=== PATIENT | male | born 1995 | race Caucasian/White ===

== ENCOUNTER 2017-02-09 15:47 | Emergency (ER) | payer BC ==
[2017-02-09 16:06] VITALS: PULSE 97; O2SAT 97
[2017-02-09] MEDS ORDERED: Sodium Chloride 0.9% 1000 ML 1,000 ML IV STA (16:08)
[2017-02-09] MEDS ORDERED: Pepcid 20 MG VIAL IV ONE ×2 (16:08→16:19)
[2017-02-09] MEDS ORDERED: GI COCKTAIL 45 ML (Maalox/Lidocaine) PO ONE (16:08)
--- NOTE | 2017-02-09 16:08 | ERPHSYRPT ---
- History of Present Illness Time Seen by Provider: 02/09/17 16:03 Historian: patient Exam Limitations: no limitations Physician History: The patient is a 21-year-old male who complains of a sudden onset of right sided chest pain and tightness about 30 minutes ago while he was smoking a cigarette. He has never had any pain like this before. He normally does not drink alcohol but last [place] he went [place] a resort and had 9 alcoholic drinks. He hasn't had much water to drink today. He became very worried about the chest pain. It was severe at first but has now moderated quite a bit. He has no past medical history. Timing/Duration: today, hour(s) (1/2) Activities at Onset: none Quality: sharpness, tightness Location: substernal (right side) Chest Pain Radiation: back Severity of Pain-Max: severe Severity of Pain-Current: mild Modifying Factors: Improves With: nothing Associated Symptoms: hurts to breathe, No nausea, No vomiting, No palpitations Prior Chest Pain/Cardiac Workup: no prior chest pain Nitro Today/Relief: no nitro taken today Aspirin Treatment Today: no aspirin today Allergies/Adverse Reactions: No Known Drug Allergies Allergy (Unverified 02/09/17 16:06) Home Medications: No Reportable Medications [No Reported Medications] 02/09/17 [History] - Review of Systems Constitutional: No Fever, No Chills Eyes: No Symptoms Ears, Nose, & Throat: No Symptoms Respiratory: No Cough, No Dyspnea Cardiac: Chest Pain Abdominal/Gastrointestinal: No Abdominal Pain, No Nausea, No Vomiting, No Diarrhea Genitourinary Symptoms: No Dysuria Musculoskeletal: No Back Pain, No Neck Pain Skin: No Rash Neurological: No Dizziness, No Focal Weakness, No Sensory Changes Psychological: No Symptoms Endocrine: No Symptoms Hematologic/Lymphatic: No Symptoms Immunological/Allergic: No Symptoms All Other Systems: Reviewed and Negative - Nursing Vital Signs Nursing Vital Signs: Initial Vital Signs Pulse Rate 98 H 02/09/17 15:59 Respiratory Rate 20 02/09/17 15:59 Blood Pressure 149/82 02/09/17 15:59 O2 Sat by Pulse Oximetry 97 02/09/17 15:59 Pain Scale Pain Intensity 5 - Physical Exam General Appearance: anxiety Eye Exam: PERRL/EOMI, eyes nml inspection Ears, Nose, Throat Exam: normal ENT inspection, moist mucous membranes Neck Exam: normal inspection, non-tender, supple, full range of motion Respiratory Exam: normal breath sounds, chest tenderness (palpation to right side of sternum reproduces pain), lungs clear, No respiratory distress Cardiovascular Exam: regular rate/rhythm, normal heart sounds Gastrointestinal/Abdomen Exam: soft, No tenderness, No mass Rectal Exam: not done Back Exam: normal inspection, No CVA tenderness, No vertebral tenderness Extremity Exam: normal inspection, normal range of motion Neurologic Exam: alert, oriented x 3, cooperative, normal mood/affect, sensation nml, No motor deficits Skin Exam: normal color, warm, dry SpO2 Interpretation: normal - Course EKG Interpreted by Me: RATE, Sinus Rhythm, NORMAL INTERVALS, NORMAL QRS, NORMAL ST-T - Radiology Exams Chest X-ray Interpretation: Interpreted by me, Negative Ordered Tests: Active Orders 24 hr Category Date Time Status EKG-ER Only STAT Care 02/09/17 16:08 Active IV Insertion STAT Care 02/09/17 16:08 Active CHEST 2 VIEWS (PA AND LAT) Stat Exams 02/09/17 16:09 Taken CBC W DIFF Stat Lab 02/09/17 16:00 Completed CMP Stat Lab 02/09/17 16:00 Completed LIPASE Stat Lab 02/09/17 16:00 Completed Lactic Acid Stat Lab 02/09/17 16:08 Completed TROPONIN Q3H Lab 02/09/17 16:00 Completed TROPONIN Q3H Lab 02/09/17 19:15 Ordered TROPONIN Q3H Lab 02/09/17 22:15 Ordered TROPONIN Q3H Lab 02/10/17 01:15 Ordered TROPONIN Q3H Lab 02/10/17 04:15 Ordered UA W/RFX UR CULTURE Stat Lab 02/09/17 17:01 Completed Urine Triage Profile Stat Lab 02/09/17 17:01 Completed Medication Summary Discontinued Medications Generic Name Dose Route Start Last Admin Trade Name Freq PRN Reason Stop Dose Admin Al Hydrox/Mg Hydrox/Simethicone Confirm 02/09/17 16:20 Maalox Es 30 Ml Unit Dose Administered 02/09/17 16:21 Dose 30 ml .ROUTE .STK-MED ONE Famotidine 20 mg 02/09/17 16:08 02/09/17 16:22 Pepcid 20 Mg Vial IV 02/09/17 16:09 20 mg STAT ONE Administration Famotidine Confirm 02/09/17 16:19 Pepcid 20 Mg Vial Administered 02/09/17 16:20 Dose 20 mg IV .STK-MED ONE Sodium Chloride 1,000 mls @ 999 mls/hr 02/09/17 16:08 02/09/17 16:22 Sodium Chloride 0.9% 1000 Ml IV 02/09/17 17:08 999 mls/hr .Q1H1M STA Administration Sodium Chloride Confirm 02/09/17 16:20 Sodium Chloride 0.9% 1000 Ml Administered 02/09/17 16:21 Dose 1,000 mls @ ud .ROUTE .STK-MED ONE Lidocaine HCl Confirm 02/09/17 16:20 Xylocaine Hcl Viscous * Administered 02/09/17 16:21 Dose 15 ml .ROUTE .STK-MED ONE Magnesium Hydroxide 45 ml 02/09/17 16:08 02/09/17 16:22 Gi Cocktail 45 Ml (Maalox/Lidocaine) PO 02/09/17 16:09 45 ml STAT ONE Administration Potassium Chloride 20 meq 02/09/17 17:51 Klor Con 10 Meq PO 02/09/17 17:52 STAT ONE Lab/Rad Data: Laboratory Result Diagrams 02/09/17 16:00 02/09/17 16:00 Laboratory Results 02/09/17 02/09/17 02/09/17 Range/Units 17:01 17:01 16:08 WBC (4.0-10.5) K/mm3 RBC (4.1-5.6) M/mm3 Hgb (12.5-18.0) gm/dl Hct (42-50) % MCV (78-100) fl MCH (26-32) pg MCHC (32-36) g/dl RDW (11.5-14.0) % Plt Count (150-450) K/mm3 MPV (6-9.5) fl Gran % (36.0-66.0) % Lymphocytes % (24.0-44.0) % Monocytes % (0.0-12.0) % Eosinophils % (0.00-5.0) % Basophils % (0.0-0.4) % Basophils # (0-0.4) Sodium (136-145) mEq/L Potassium (3.5-5.1) mEq/L Chloride (98-107) mEq/L Carbon Dioxide (21-32) mEq/L Anion Gap (5-15) MEQ/L BUN (9-20) mg/dL Creatinine (0.55-1.30) mg/dl Estimated GFR ML/MIN Glucose (70-110) MG/DL Lactic Acid 1.2 (0.4-2.0) Calcium (8.5-10.1) mg/dL Total Bilirubin (0.2-1.0) mg/dL AST (15-37) U/L ALT (12-78) U/L Alkaline Phosphatase (46-116) U/L Troponin I (0.000-0.056) ng/ml Serum Total Protein (6.4-8.2) gm/dL Albumin (3.4-5.0) g/dL Lipase (73-393) U/L Ur Collection Type VOID Urine Color YELLOW (YELLOW) Urine Appearance CLEAR (CLEAR) Urine pH 6.0 (5-6) Ur Specific [place] 1.020 (1.005-1.025) Urine Protein NEGATIVE (Negative) Urine Ketones NEGATIVE (NEGATIVE) Urine Blood NEGATIVE (0-5) Sj/ul Urine Nitrite NEGATIVE (NEGATIVE) Urine Bilirubin SMALL (NEGATIVE) Urine Urobilinogen 1 (0-1) mg/dL Ur Leukocyte Esterase NEGATIVE (NEGATIVE) Urine Culture Reflexed NO (NO) Urine Glucose NEGATIVE (NEGATIVE) mg/dL Urine Opiates Level NEG. (NEGATIVE) Ur Methadone NEG. (NEGATIVE) Urine Barbiturates NEG. (NEGATIVE) Ur Phencyclidine (PCP) NEG. (NEGATIVE) Urine Amphetamine NEG. (NEGATIVE) U Benzodiazepine Level NEG. (NEGATIVE) Urine Cocaine NEG. (NEGATIVE) Urine Marijuana (THC) POS. (NEGATIVE) Specimen Received 02/09/17 02/09/17 02/09/17 02/09/17 Range/Units 16:00 16:00 16:00 WBC 11.7 H (4.0-10.5) K/mm3 RBC 5.68 H (4.1-5.6) M/mm3 Hgb 16.6 (12.5-18.0) gm/dl Hct 49.6 (42-50) % MCV 87.3 (78-100) fl MCH 29.2 (26-32) pg MCHC 33.5 (32-36) g/dl RDW 14.0 (11.5-14.0) % Plt Count 228 (150-450) K/mm3 MPV 10.7 H (6-9.5) fl Gran % 59.2 (36.0-66.0) % Lymphocytes % 30.5 (24.0-44.0) % Monocytes % 7.5 (0.0-12.0) % Eosinophils % 2.7 (0.00-5.0) % Basophils % 0.1 (0.0-0.4) % Basophils # 0.01 (0-0.4) Sodium 139 (136-145) mEq/L Potassium 3.3 L (3.5-5.1) mEq/L Chloride 103 (98-107) mEq/L Carbon Dioxide 26.0 (21-32) mEq/L Anion Gap 13.1 (5-15) MEQ/L BUN 16 (9-20) mg/dL Creatinine 1.27 (0.55-1.30) mg/dl Estimated GFR > 60 ML/MIN Glucose 105 (70-110) MG/DL Lactic Acid (0.4-2.0) Calcium 9.0 (8.5-10.1) mg/dL Total Bilirubin 0.40 (0.2-1.0) mg/dL AST 24 (15-37) U/L ALT 44 (12-78) U/L Alkaline Phosphatase 72 (46-116) U/L Troponin I < 0.017 (0.000-0.056) ng/ml Serum Total Protein 7.8 (6.4-8.2) gm/dL Albumin 4.2 (3.4-5.0) g/dL Lipase 136 (73-393) U/L Ur Collection Type Urine Color (YELLOW) Urine Appearance (CLEAR) Urine pH (5-6) Ur Specific [place] (1.005-1.025) Urine Protein (Negative) Urine Ketones (NEGATIVE) Urine Blood (0-5) Sj/ul Urine Nitrite (NEGATIVE) Urine Bilirubin (NEGATIVE) Urine Urobilinogen (0-1) mg/dL Ur Leukocyte Esterase (NEGATIVE) Urine Culture Reflexed (NO) Urine Glucose (NEGATIVE) mg/dL Urine Opiates Level (NEGATIVE) Ur Methadone (NEGATIVE) Urine Barbiturates (NEGATIVE) Ur Phencyclidine (PCP) (NEGATIVE) Urine Amphetamine (NEGATIVE) U Benzodiazepine Level (NEGATIVE) Urine Cocaine (NEGATIVE) Urine Marijuana (THC) (NEGATIVE) Specimen Received - Progress Progress: improved Air Movement: good Progress Note: 02/09/17 17:52 After pepcid 20 mg by IV and a GI cocktail, pt is feeling better. Counseled pt/family regarding: lab results, diagnosis, rad results - Departure Time of Disposition: 17:56 Departure Disposition: Home Clinical Impression: Acid reflux, Hypokalemia Condition: Stable Critical Care Time: No Referrals: ROMINA NASCIMENTO MD [Primary Care Provider] - Additional Instructions: After your night of alcoholic consumption, you have gastric reflux as the cause of your right sided chest pain. You also have mild low serum potassium. You were given Pepcid 20 mg and fluids by IV in the ER. You also were given a GI cocktail and potassium 20 mEq orally. Follow up tomorrow if the condition persists.
[2017-02-09 16:15] LABS: BASOPHIL % 0.1 % (0.0-0.4); Eosinophil % 2.7 % (0.00-5.0); Granulocytes % 59.2 % (36.0-66.0); Lymphocytes % 30.5 % (24.0-44.0); Mean Cell Volume 87.3 fl (78-100); Mean Corpuscular Hemoglobin 29.2 pg (26-32); Mean Platelet Volume 10.7 fl (6-9.5); Monocytes % 7.5 % (0.0-12.0); Platelet Count 228 K/mm3 (150-450); Red Blood Count 5.68 M/mm3 (4.1-5.6); White Blood Count 11.7 K/mm3 (4.0-10.5)
[2017-02-09] MEDS ORDERED: MAALOX ES 30 ML UNIT DOSE ONE (16:20)
[2017-02-09] MEDS ORDERED: Sodium Chloride 0.9% 1000 ML 1,000 ML ONE (16:20)
[2017-02-09] MEDS ORDERED: XYLOCAINE HCl Viscous ONE (16:20)
[2017-02-09 16:25] LABS: ALBUMIN 4.2 g/dL (3.4-5.0); ALKALINE PHOSPHATASE 72 U/L (46-116); ANION GAP 13.1 MEQ/L (5-15); BLOOD UREA NITROGEN 16 mg/dL (9-20); CHLORIDE 103 mEq/L (98-107); Glucose 105 MG/DL (70-110); LIPASE 136 U/L (73-393); Potassium 3.3 mEq/L (3.5-5.1); SGOT/AST 24 U/L (15-37); SGPT/ALT 44 U/L (12-78); SODIUM 139 mEq/L (136-145); Total Protein 7.8 gm/dL (6.4-8.2)
[2017-02-09 17:13] LABS: ADD URINE CULTURE? NO (NO); Bilirubin SMALL (NEGATIVE); Blood NEGATIVE Ery/ul (0-5); COMPLETE URINE MICROSCOPIC? NO; Collection Type VOID; Glucose NEGATIVE (NEGATIVE); Leukocyte Esterase NEGATIVE (NEGATIVE)
[2017-02-09] MEDS ORDERED: Klor Con 10 MEQ PO ONE ×2 (17:51→18:00)
[2017-02-09 18:07] VITALS: BP 122/71
--- NOTE | 2017-02-09 20:13 | XRAY ---
Indication: Chest pain and cough. Comparison: None PA/lateral chest demonstrates normal heart and lungs with a few incidental calcified granulomas. Bony thorax intact.
== END 2017-02-09 18:20 | disposition home or self-care (01) ==
LOC: ED 15:47
DX: K21.9 Gastro-esophageal reflux disease without esophagitis (principal); E87.6 Hypokalemia; R07.89 Other chest pain; F17.210 Nicotine dependence, cigarettes, uncomplicated
CPT/HCPCS: 36000; 36415; 71020; 80053; 80307; 81002; 83605; 83690; 84484; 85025; 93005; 96360; 96374; 99284; A9270-GY